=== PATIENT | female | born 2000 | race African-American/Black ===

== ENCOUNTER 2021-12-20 18:54 | Emergency (ER) | payer SELFPAY ==
[~2021-12-20] VITALS: Ht 167.6 cm; Wt 45.0 kg
[2021-12-20] MEDS ORDERED: ONDANSETRON HCL 4MG/2ML INJ IV STA (19:06)
[2021-12-20] MEDS ORDERED: MORPHINE SULFATE 4 MG/ML CPJ (NOT FOR IM USE) IV STA (19:06)
[2021-12-20] MEDS ORDERED: SODIUM CHLORIDE 0.9% 1,000 ML IV ONE ×2 (19:15→21:15)
[2021-12-20 20:12] LABS: HEMATOCRIT. 30.2 % (36.0-48.0); HEMOGLOBIN. 9.3 g/dL (12.0-16.0); MEAN CORPUSCULAR VOLUME 64.6 fL (81.0-99.0); MEAN PLATELET VOLUME 8.7 fl (7.4-10.4); PLATELET 508 x1000/uL (130-400); RED BLOOD CELL COUNT 4.66 mill/uL (4.2-5.4)
[2021-12-20 20:19] LABS: CHLORIDE 106 mEq/L (98-107)
[2021-12-20 20:26] LABS: INR 1.1; PROTHROMBIN TIME 11.6 sec (9.6-11.0)
[2021-12-20 20:28] LABS: HCG SCREEN NEGATIVE
[2021-12-20 20:55] LABS: PLATELET ESTIMATE INCREASED
[2021-12-20] MEDS ORDERED: LORAZEPAM 2MG/ML CPJ IV ONE (21:15)
[2021-12-20 21:39] LABS: CLARITY URINE CLEAR (CLEAR); COLOR URINE YELLOW (YELLOW); KETONES URINE 3+ (NEGATIVE); LEUKOCYTE ESTERASE URINE NEGATIVE (NEGATIVE); NITRITE URINE NEGATIVE (NEGATIVE); OCCULT BLOOD URINE NEGATIVE (NEGATIVE); PH URINE 5.5 (4.5-8.0); PROTEIN URINE 2+ (NEGATIVE); SPECIFIC GRAVITY URINE 1.031 (1.005-1.030); UROBILINOGEN URINE 0.2 E.U./dL (0.2-1.0)
[2021-12-20 21:51] LABS: *BARBITURATES SCREEN URINE NEGATIVE (NEGATIVE); *BENZODIAZEPINES SCREEN URINE NEGATIVE (NEGATIVE); *COCAINE SCREEN URINE NEGATIVE (NEGATIVE); METHADONE URINE SCREEN NEGATIVE (NEGATIVE)
[2021-12-20 21:53] LABS: PHENCYCLIDINE URINE SCREEN NEGATIVE (NEGATIVE)
[2021-12-20 21:54] LABS: *AMPHETAMINES SCREEN URINE NEGATIVE (NEGATIVE)
[2021-12-20 21:55] LABS: CANNABINOID URINE SCREEN PRESUMTIVE POSITIVE (NEGATIVE); OPIATES URINE SCREEN PRESUMTIVE POSITIVE (NEGATIVE)
[2021-12-20] MEDS ORDERED: LOPE2TAB26 MT (22:59)
[2021-12-20] MEDS ORDERED: OMEP20CA14 MT (22:59)
[2021-12-20] MEDS ORDERED: ONDA4TAB11 PO (22:59)
[2021-12-20 23:12] VITALS: BP 103/69
== END 2021-12-20 23:56 | disposition home or self-care (01) ==
LOC: ER 18:54
DX: R10.9 Unspecified abdominal pain (principal); R11.2 Nausea with vomiting, unspecified; F15.10 Other stimulant abuse, uncomplicated
CPT/HCPCS: 36415; 74176; 80053; 80305; 81003; 83690; 84703; 85025; 85610; 96361; 96374; 96375; 99284; J2060; J2270; J2405; J7030